=== PATIENT | female | born 1970 | race Caucasian/White ===

== ENCOUNTER 2017-01-13 13:25 | Emergency (ER) | payer BC ==
[2017-01-13] MEDS ORDERED: HYDROmorphone 1 MG/ML Syringe IVPUSH ONE (13:42)
[2017-01-13] MEDS ORDERED: Sodium Chloride 0.9% 1,000 ML IV ONE (13:42)
[2017-01-13] MEDS ORDERED: Ondansetron 4 MG/2 ML SDV IVPUSH ONE (13:42)
[2017-01-13] MEDS ORDERED: Sodium Chloride 0.9% 10 ML Syringe FLUSH PRN (13:44)
--- NOTE | 2017-01-13 13:45 | EDM.PDOC ---
ED HPI GENERAL MEDICAL PROBLEM - General Chief Complaint: Flank Pain Stated Complaint: ABDOMINAL PAIN Time Seen by Provider: 01/13/17 13:45 Source of Information: Reports: Patient History Limitations: Reports: No Limitations - History of Present Illness INITIAL COMMENTS - FREE TEXT/NARRATIVE: 46-year-old female presents for evaluation and treatment of back pain that radiates into her left flank and then across her abdomen. Reports that the pain began suddenly about an hour to an hour and half prior to arrival in the ER. She was at a when the pain started. She reports associated symptoms of nausea. Reports pain in her back and her left flank. She also reports pain across her abdomen in the epigastric area. Reports that it is severe. States she 's never had anything like this before. No treatments prior to arrival in the ER. Associated nausea. No fevers, vomiting, dysuria or hematuria. She is currently on antibiotics for acne. States she took a laxative yesterday she was told to be more constipated on the antibiotics. Last bowel movement was yesterday. Previous abdominal surgeries include a cholecystectomy and sections. Treatments [employer]: Reports: Other (see below) Other Treatments [employer]: none Bilateral Flank Pain Score (Numeric/FACES): 10 - Related Data Allergies Allergy/AdvReac Type Severity Reaction Status Date / Time No Known Allergies Allergy Verified 01/13/17 13:35 Home Meds: Home Meds Acetaminophen/oxyCODONE [Percocet 325-5 MG] 1 tab PO Q4H PRN #20 tablet [Rx] ClonazePAM [KlonoPIN] 0.5 mg PO BEDTIME PRN 01/13/17 [History] Doxycycline [Vibramycin] 100 mg PO BID 01/13/17 [History] Ondansetron [Zofran ODT] 4 mg PO Q8H PRN #20 tab.dis 01/13/17 [Rx] Phentermine HCl 37.5 mg PO DAILY 01/13/17 [History] Tamsulosin [Flomax] 0.4 mg PO PCBREAKFAST #14 cap.er 01/13/17 [Rx] Past Medical History - Past Surgical History GI Surgical History: Reports: Cholecystectomy Female Surgical History: Reports: Section ED ROS GENERAL - Review of Systems Review Of Systems: See Below Constitutional: Denies: Fever GI/Abdominal: Reports: Abdominal Pain, Nausea. Denies: Vomiting : Reports: Flank Pain (left). Denies: Dysuria Musculoskeletal: Reports: Back Pain (bilateral low back) ED EXAM, RENAL/ - Physical Exam Exam: See Below Exam Limited By: No Limitations General Appearance: Alert, WD/WN, Moderate Distress Respiratory/Chest: No Respiratory Distress, Lungs Clear, Normal Breath Sounds Cardiovascular: Normal Peripheral Pulses, Regular Rate, Rhythm, No Murmur GI/Abdominal: Normal Bowel Sounds, Soft, Tender (generalized (greatest in the RLQ)) Neurological: Alert, Oriented, Normal Cognition Psychiatric: Normal Affect, Normal Mood Skin Exam: Warm, Diaphoretic Course - Vital Signs Last Recorded V/S: Last Vital Signs Temp 36.4 C 01/13/17 13:32 Pulse 84 01/13/17 14:50 Resp 18 01/13/17 14:50 BP 109/64 01/13/17 14:50 Pulse Ox 100 01/13/17 14:50 - Orders/Labs/Meds Orders: Active Orders 24 hr Category Date Time Status Peripheral IV Care [RC] . DIRECTED Care 01/13/17 13:44 Active CULTURE URINE [RM] Stat Lab 01/13/17 13:56 Received Sodium Chloride 0.9% [Saline Flush] Med 01/13/17 13:44 Active 10 ml FLUSH ASDIRECTED PRN Peripheral IV Insertion Adult [OM.PC] Routine Oth 01/13/17 13:44 Ordered Medication Orders Sodium Chloride (Saline Flush) 10 ml FLUSH ASDIRECTED PRN PRN Reason: Keep Vein Open Last Admin: 01/13/17 14:00 Dose: 10 ml Labs: Laboratory Tests 01/13/17 01/13/17 01/13/17 Range/Units 13:45 13:45 13:56 WBC 9.77 (3.98-10.04) K/mm3 RBC 4.15 (3.98-5.22) M/mm3 Hgb 13.1 (11.2-15.7) gm/L Hct 40.2 (34.1-44.9) % MCV 96.9 H (79.4-94.8) fl MCH 31.6 (25.6-32.2) pg MCHC 32.6 (32.2-35.5) g/dl RDW Std Deviation 43.7 (36.4-46.3) fL Plt Count 382 H (182-369) K/mm3 MPV 8.8 L (9.4-12.3) fl Neutrophils % (Manual) 70 H (40-60) % Band Neutrophils % 0 (0-10) % Lymphocytes % (Manual) 26 (20-40) % Atypical Lymphs % 0 % Monocytes % (Manual) 2 (2-10) % Eosinophils % (Manual) 1 (0.7-5.8) % Basophils % (Manual) 1 (0.1-1.2) Platelet Estimate Adequate RBC Morph Comment Normal Sodium 142 (136-145) mEq/L Potassium 4.2 (3.5-5.1) mEq/L Chloride 108 H (98-107) mEq/L Carbon Dioxide 22 (21-32) mEq/L Anion Gap 16.2 H (5-15) BUN 14 (7-18) mg/dL Creatinine 0.9 (0.55-1.02) mg/dL Est Cr Clr Drug Dosing 76.76 mL/min Estimated GFR (MDRD) > 60 (>60) mL/min BUN/Creatinine Ratio 15.6 (14-18) Glucose 96 (74-106) mg/dL Calcium 9.4 (8.5-10.1) mg/dL Total Bilirubin 0.3 (0.2-1.0) mg/dL AST 14 L (15-37) U/L ALT 25 (14-59) U/L Alkaline Phosphatase 65 (46-116) U/L C-Reactive Protein < 0.2 (<1.0) mg/dL Total Protein 7.3 (6.4-8.2) g/dl Albumin 3.8 (3.4-5.0) g/dl Globulin 3.5 gm/dL Albumin/Globulin Ratio 1.1 (1-2) Lipase 143 (73-393) U/L Urine Color Yellow (Yellow) Urine Appearance Clear (Clear) Urine pH 6.0 (5.0-8.0) Ur Specific [place] 1.025 (1.005-1.030) Urine Protein Negative (Negative) Urine Glucose (UA) Negative (Negative) Urine Ketones Negative (Negative) Urine Occult Blood 2+ H (Negative) Urine Nitrite Negative (Negative) Urine Bilirubin Negative (Negative) Urine Urobilinogen 0.2 (0.2-1.0) Ur Leukocyte Esterase Negative (Negative) Urine RBC 10-20 H (0-5) /hpf Urine WBC 0-5 (0-5) /hpf Ur Epithelial Cells 5-10 H (0-5) /hpf Urine Bacteria Moderate H (FEW) /hpf Urine Mucus Moderate H (FEW) /hpf Meds: Medications Generic Name Dose Route Start Last Admin Trade Name Freq PRN Reason Stop Dose Admin Sodium Chloride 10 ml 01/13/17 13:44 01/13/17 14:00 Saline Flush FLUSH 10 ml ASDIRECTED PRN Administration Keep Vein Open Discontinued Medications Generic Name Dose Route Start Last Admin Trade Name Freq PRN Reason Stop Dose Admin Hydromorphone HCl 1 mg 01/13/17 13:42 01/13/17 13:58 Dilaudid IVPUSH 01/13/17 13:43 1 mg ONETIME ONE Administration Sodium Chloride 1,000 mls @ 999 mls/hr 01/13/17 13:42 01/13/17 13:54 Normal Saline IV 01/13/17 14:42 999 mls/hr ONETIME ONE Administration Ketorolac Tromethamine 30 mg 01/13/17 15:00 Toradol IVPUSH 01/13/17 15:01 ONETIME ONE Ondansetron HCl 4 mg 01/13/17 13:42 01/13/17 13:56 Zofran IVPUSH 01/13/17 13:43 4 mg ONETIME ONE Administration - Radiology Interpretation Free Text/Narrative:: CT of the abdomen and pelvis without contrast impression per Dr. Sandoval: 1. Slightly prominent right ureter caused by an obstructing stone at the right UVJ measuring 3 mm. 2. 5 mm nodule within the left lung base. If patient is not a smoker, this nodule can be ignored. If the patient is a smoker at one follow-up noncontrast chest CT in one year. 3. No additional abnormalities seen other than a slight increased stool within colon. - Re-Assessments/Exams Free Text/Narrative Re-Assessment/Exam: 01/13/17 15:06 I reviewed the lab and CT reports with the patient. Her pain is significantly improved within 1 mg IV Dilaudid. Pain is returning so we will give her some Toradol this time for pain relief. I informed her of the lung nodule in the left lower lung. She is a smoker. Will have her get a noncontrast chest CT in one year. Will discharge home with Flomax, pain pills and Zofran. Follow up this Friday for symptoms have not much improved. She should be able to pass the stone on her own. Discharge instructions as documented. Departure - Departure Time of Disposition: 15:06 Disposition: Home, Self-Care 01 Condition: Fair Clinical Impression: Right nephrolithiasis, Lung nodule seen on imaging study - Discharge Information Prescriptions: Acetaminophen/oxyCODONE [Percocet 325-5 MG] 1 tab PO Q4H PRN #20 tablet PRN Reason: Pain Ondansetron [Zofran ODT] 4 mg PO Q8H PRN #20 tab.dis PRN Reason: Nausea Tamsulosin [Flomax] 0.4 mg PO PCBREAKFAST #14 cap.er Referrals: Monica Tran PA-C [Primary Care Provider] - Forms: ED Department Discharge Additional Instructions: Take the Flomax 1 tablet daily until your stone passes. Make sure you're drinking plenty of fluids. you were given medication the ER that can affect your ability to drive or operate machinery. Do not drive or operate machinery within 12 hours of taking prescription narcotic pain medication. may take [id number] ibuprofen 600 to 800 mg every 6 hours as needed for pain. For Pain not relieved by ibuprofen, you may take Percocet 1-2 tabs every 4-[address] operative machinery within 12 hours of taking the Percocet. Percocet can be habit-forming , I recommend you take as few of these as needed to control your pain. Zofran 1 tab sublingual every 8 hours as needed for nausea. Follow up with your primary care provider in this week if your symptoms have not improved. Follow up with your primary care provider in one year for repeat noncontrast chest CT to reevaluate the lung nodule. Please return to the ER if your symptoms change or worsen. - My Orders Last 24 Hours: My Active Orders 01/13/17 13:44 Peripheral IV Care [RC] . DIRECTED Sodium Chloride 0.9% [Saline Flush] 10 ml FLUSH ASDIRECTED PRN Peripheral IV Insertion Adult [OM.PC] Routine 01/13/17 13:56 CULTURE URINE [RM] Stat - Assessment/Plan Last 24 Hours: My Active Orders 01/13/17 13:44 Peripheral IV Care [RC] . DIRECTED Sodium Chloride 0.9% [Saline Flush] 10 ml FLUSH ASDIRECTED PRN Peripheral IV Insertion Adult [OM.PC] Routine 01/13/17 13:56 CULTURE URINE [RM] Stat
--- NOTE | 2017-01-13 14:44 | CT ---
CT abdomen and pelvis Technique: Multiple axial sections were obtained from above the dome of the diaphragm inferiorly to the pubic symphysis. Intravenous contrast was not utilized. Study has been performed as a ureteral stone protocol. Findings: Right ureter is mildly prominent in size. This finding is caused by an obstructing 3 mm stone located at the UVJ. No other abnormal calcifications are seen along the course of the right or left ureters. No abnormal calcifications seen within the kidney. Visualized lung bases shows a small subpleural nodule measuring 5 mm. Noncontrast appearance of the liver appears within normal limits. Surgical clips are seen from prior cholecystectomy. Spleen appears within normal limits. Adrenal glands show no nodule. Pancreas appears within normal limits. Aorta shows no aneurysmal dilatation. No retroperitoneal adenopathy or mesenteric abnormalities are seen. Appendix is seen which appears normal. No pelvic mass or adenopathy is seen. No free fluid or inflammatory change is seen within the abdomen or within the pelvis. Slight increased stool is noted throughout the colon. Bone window settings were reviewed which appears within normal limits for the patient's age. Impression: 1. Slightly prominent right ureter caused by an obstructing stone at the right UVJ measuring 3 mm. 2. 5 mm nodule within the left lung base. If patient is not a smoker, this nodule can be ignored. If patient is a smoker recommend follow-up noncontrast chest CT in one year. 3. No additional abnormality is seen other than slight increased stool within the colon. Diagnostic code #3
[2017-01-13] MEDS ORDERED: Ketorolac 30 MG/ML SDV IVPUSH ONE (15:00)
== END 2017-01-13 15:38 | disposition home or self-care (01) ==
LOC: JD.ED 13:25
DX: N20.1 Calculus of ureter (principal); R91.1 Solitary pulmonary nodule; Z79.899 Other long term (current) drug therapy
CPT/HCPCS: 36415; 74176; 80053; 81001; 83690; 85025; 86140; 87086; 96361; 96374; 96375; 99284; J1170; J1885; J2405; J7040; J7050

== ENCOUNTER 2022-01-22 18:24 | Emergency (ER) | payer OTHER, BC ==
[2022-01-22] MEDS ORDERED: Ibuprofen 600 MG Tab PO ONE (19:17)
[2022-01-22] MEDS ORDERED: HYDROmorphone 0.5 MG/0.5 ML Syringe IM ONE (19:49)
[2022-01-22] MEDS ORDERED: Ondansetron 4 MG Tab.DIS PO ONE (19:49)
== END 2022-01-22 21:21 | disposition home or self-care (01) ==
LOC: JD.ED 18:24
DX: M25.511 Pain in right shoulder (principal); M54.2 Cervicalgia; V49.40XA Driver injured in collision with unspecified motor vehicles in traffic accident, initial encounter; Y92.410 Unspecified street and highway as the place of occurrence of the external cause
CPT/HCPCS: 71046; 72125; 73030; 96372; 99285; A9270; J1170; 99282